=== PATIENT | female | born 1970 | race Caucasian/White ===

== ENCOUNTER → 2016-12-30 | Outpatient (CLI) | payer OTHER ==
[2014-06-21 18:12] VITALS: BP 114/71
[~2016-12-30] MED LIST: ASCO10002 PO; B6/F1TAB PO; BETACAROTENE; CETI10TA16 PO; CHOL20003 PO; CHOL4POW2 PO; CYAN500T PO; DICL1PAT4 TD; ELUX75TA PO; ESTR2TAB PO; FOLI0.4T2 PO; HYOS0.3715 PO; LEVO100T5 PO; LOPE2CAP88 PO; LORA10TA3 PO; LYSI1000 PO; NICO1PAT5 TD; OMEP20TA PO; OSPE60TA2 PO; OXYC-323 PO; POTA99TA PO; TOPI50TA4 PO; VARE1TAB21 PO; VITA400C36 PO; [UNRECOGNIZED DRUG - CODE] PO
--- NOTE | 2016-12-30 12:38 | RAD ---
Radionuclide bone scan, 12/30/2016: History: Hypercalcemia, left hip and back pain Whole-body imaging was performed following IV injection of 26 mCi of technetium 99m MDP. No previous bone scan is available for comparison purposes. There is mildly increased activity at scattered joints including the hips, shoulders, elbows and wrists in a symmetric pattern compatible with arthritis. There is slightly asymmetric increased activity at the right mid foot, right ankle and right patella, also likely on an arthritic basis. Spine activity is normal. Activity of the radionuclide about the skeleton the major joints is otherwise unremarkable. Normal activity is present in both kidneys and the bladder. IMPRESSION: Mild scattered arthritic changes as described above.
== END | disposition home or self-care (01) ==
LOC: NM 09:04
PROVIDERS: ATTEND Family Medicine
DX: E83.52 Hypercalcemia (principal); M54.5 Low back pain; M25.552 Pain in left hip; M19.90 Unspecified osteoarthritis, unspecified site
CPT/HCPCS: 78306; 96374; A9503

== ENCOUNTER → 2017-02-16 | Outpatient (CLI) | payer OTHER ==
[2014-06-21 18:12] VITALS: BP 114/71
[~2017-02-16] MED LIST changes: -DICL1PAT4 TD; +DULO30CA2 PO; +FLECTOR1 EACH TD; -TOPI50TA4 PO; +TOPI50TA75 PO
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
== END | disposition home or self-care (01) ==
LOC: PNCL 07:28
PROVIDERS: ATTEND Anesthesiology
DX: M54.5 Low back pain (principal); M79.605 Pain in left leg
CPT/HCPCS: 99214

== ENCOUNTER → 2017-02-26 | Outpatient (CLI) | payer OTHER ==
[2014-06-21 18:12] VITALS: BP 114/71
[~2017-02-26] MED LIST changes: +GABA-585 PO; +IOHEXOL 180 MG/ML 10 ML VIAL. ONE; +methylPREDNISolone ACETATE 40 MG/ML VIAL. ONE; +methylPREDNISolone ACETATE 80 MG/ML VIAL. ONE
--- NOTE | 2017-02-26 17:01 | PAIN ---
DATE OF SERVICE: 02/26/2017 PROGRESS NOTE FOR PAIN CLINIC DIAGNOSES: Lumbar radiculopathy with lumbar degenerative disk disease. HISTORY OF PRESENT ILLNESS: The patient is a 46-year-old female, who returns for followup status post initial evaluation and preauthorization for lumbar epidural steroid injection. The patient reports still significant pain in the low back, bilateral lower extremities, left greater than right, aching, sharp, shooting, stabbing, burning, tingling unbearable radiating and severe. The patient rates as 10 on scale 10 all times, has been awaken her from sleep 2-4 times at night, which she has to get out of bed, change positions walk around and try to get some more sleep. The patient reports no new motor or sensory deficits, no new bowel or bladder incontinence or other complaints, but has some tingling in the left foot and left hip associated with the back pain, which is on her feet. PHYSICAL EXAMINATION: VITAL SIGNS: The patient's blood pressure 123/77, pulse 91, respirations 20, temperature is 97.8 degrees Fahrenheit, weight is 155 pounds. GENERAL: The patient is awake, alert, oriented, appropriate, very pleasant demeanor. The patient accompanied by her daughter. HEENT: Shows normocephalic, atraumatic. Extraocular movements are intact and symmetrical. Oral cavity, mucous membranes are moist and pink. Dentition is intact. NECK: Shows anterior throat supple without palpable lymphadenopathy noted. Swallow reflex is symmetrical. CHEST: Shows normal on inspection. Breath sounds are clear to auscultation bilaterally. HEART: Shows S1 and S2 clear. ABDOMEN: Soft, nontender, nondistended. No palpable organomegaly is noted. BACK: Shows spine grossly midline. Lumbar paraspinous musculature shows symmetrical with inspection and palpation shows moderate tenderness with palpation throughout the upper, middle, lower distribution of the paraspinous musculature bilaterally. The patient shows no tenderness over the sacrum or sacroiliac regions. Good rotational motion both laterally as well as extension and flexion. EXTREMITIES: Lower extremities showed deep tendon reflexes 2+ in the patellar, 1+ tendo calcaneus tendons. Motor exam is strong with 5/5 dorsiflexion, extension, quadriceps and hamstring flexion equal. Options were discussed with the patient. We will proceed with a lumbar epidural steroid injection today with fluoroscopic guidance. Risks were then discussed including, but not limited to bleeding, infection, possibility of epidural hematoma, subsequent neurologic compromise, dural puncture, headaches, spinal cord and/or nerve damage, side effects of steroid medication and poor results regarding pain control. The patient understands and wishes to proceed. The patient will return to clinic in approximately 2 weeks for followup, was counseled on return appointment, activity level and side effects to be aware of. DIAGNOSES: Lumbar radiculopathy with lumbar degenerative disk disease. PROCEDURE: Lumbar epidural steroid injection in translaminar approach at L4-L5 level using C-arm fluoroscopic guidance under sterile prep and drape using local anesthetic. MEDICATION INJECTED: Depo-Medrol 120 mg plus 10 mL of preservative-free normal saline and 2 mL of Isovue for contrast. CONDITION AT DISCHARGE: Stable. The patient tolerated procedure well, had no complications. PRANAY AGUILAR MD DR: RUSTY/opal JOB#: [id number] / [id number]
== END | disposition home or self-care (01) ==
LOC: PNCL 07:32
PROVIDERS: ATTEND Anesthesiology
DX: M51.16 Intervertebral disc disorders with radiculopathy, lumbar region (principal); E78.00 Pure hypercholesterolemia, unspecified; E03.9 Hypothyroidism, unspecified; F32.9 Major depressive disorder, single episode, unspecified; K21.9 Gastro-esophageal reflux disease without esophagitis; Z98.51 Tubal ligation status; Z90.710 Acquired absence of both cervix and uterus
CPT/HCPCS: 62323; J1030; J1040

== ENCOUNTER → 2017-03-12 | Outpatient (CLI) | payer OTHER ==
[2014-06-21 18:12] VITALS: BP 114/71
[~2017-03-12] MED LIST changes: +CONTRAST GIVEN MC PRN; -IOHEXOL 180 MG/ML 10 ML VIAL. ONE; +IOHEXOL 240 MG/ML 50ML VIAL. PO ONE; +IOHEXOL 300 MG/ML 75 ML VIAL IV ONE; -methylPREDNISolone ACETATE 40 MG/ML VIAL. ONE; -methylPREDNISolone ACETATE 80 MG/ML VIAL. ONE
--- NOTE | 2017-03-12 09:16 | RAD ---
Indication hypercalcemia. Assess for occult tumor. Axial images through the chest, abdomen and pelvis were obtained. Both oral and IV contrast were administered. 75 cc of Omnipaque 300 was administered intravenously. No prior CT imaging of the chest, abdomen or pelvis is available. CT chest: Findings The thyroid is mildly and diffusely enlarged. The thoracic aorta is unremarkable. There is no significant hilar or mediastinal adenopathy. The lungs are clear. There is no dominant soft tissue mass seen in either lung. CT abdomen and pelvis: Findings. The liver and spleen appear unremarkable. Clips are noted in the gallbladder fossa. No significant adrenal or renal pathology is seen. There is a minute right renal calculus. The pancreas appears normal. There is no significant central or retroperitoneal adenopathy. Acute finding in the abdomen is not seen. No mass is apparent. The pelvis is unremarkable. IMPRESSION: Essentially unremarkable CT chest, abdomen and pelvis. Minute right renal calculus. PQRS Compliance Statement: One or more of the following individualized dose reduction techniques were utilized for this examination: 1. Automated exposure control 2. Adjustment of the mA and/or kV according to patient size 3. Use of iterative reconstruction technique
== END | disposition home or self-care (01) ==
LOC: CT 07:49
PROVIDERS: ATTEND Family Medicine
DX: E83.52 Hypercalcemia (principal); C80.1 Malignant (primary) neoplasm, unspecified
CPT/HCPCS: 71260; 74177; Q9966; Q9967

== ENCOUNTER → 2017-03-19 | Outpatient (CLI) | payer OTHER ==
[2014-06-21 18:12] VITALS: BP 114/71
[~2017-03-19] MED LIST changes: -CHOL20003 PO; +CHOL20009 PO; -CONTRAST GIVEN MC PRN; +IOHEXOL 180 MG/ML 10 ML VIAL. ONE; -IOHEXOL 240 MG/ML 50ML VIAL. PO ONE; -IOHEXOL 300 MG/ML 75 ML VIAL IV ONE; -LYSI1000 PO; -OMEP20TA PO; +OMEP20TA8 PO; +OXYC5TAB PO; +SIME125C75 PO; -TOPI50TA75 PO; +TOPI50TA8 PO; +[UNRECOGNIZED DRUG - CODE] PO; -[UNRECOGNIZED DRUG - CODE] PO; +methylPREDNISolone ACETATE 40 MG/ML VIAL. ONE; +methylPREDNISolone ACETATE 80 MG/ML VIAL. ONE
--- NOTE | 2017-03-20 01:08 | PAIN ---
DATE OF SERVICE: 03/19/2017 DIAGNOSES: Lumbar radiculopathy with lumbar degenerative disk disease. HISTORY OF PRESENT ILLNESS: The patient is a 46-year-old female who returns for followup status post lumbar epidural steroid injection x 1. The patient reports approximately 50% improvement initially in the low back and left leg, but the pain has begun to return now over the past week or so. The patient reports it is increased with walking and standing, better with sitting or lying down, although it does wake her from sleep once in a while, she sleeps about four hours at time, ____ awaken her, she has to reposition and she can get back to sleep without difficulty. The patient reports it as aching, sharp, tight, shooting, cramping, stabbing, burning, tingling, unbearable, severe and radiating and it is 10 on a scale of 10, its least is currently an 8 on a scale of 10 today. The patient reports no new motor or sensory deficits, no new bowel or bladder incontinence or other complaints. PHYSICAL EXAMINATION: VITAL SIGNS: The patient's blood pressure is 107/83, pulse is 82, respirations 18, temperature is 97.8 degrees Fahrenheit, height is 5 feet 6 inches, weight is 152 pounds. GENERAL: The patient is awake, alert, oriented, appropriate, very pleasant demeanor. HEENT: Shows normocephalic, atraumatic. Extraocular movements are intact and symmetrical. Oral cavity, mucous membranes are moist and pink. Dentition is intact. NECK: Shows anterior throat supple without palpable lymphadenopathy noted. Swallow reflex is symmetrical. CHEST: Shows normal on inspection. Breath sounds clear to auscultation bilaterally. HEART: Shows S1 and S2 clear. ABDOMEN: Soft, nontender, nondistended. No palpable organomegaly is noted. No rebound or guarding demonstrated. BACK: The patient's back shows spine grossly in the midline. The lumbar paraspinous musculature is symmetrical on inspection without asymmetry with palpation shows normal muscle girth, is firm and moderately tender in the middle and lower distribution of paraspinous muscles, but only diffusely without radiation. EXTREMITIES: Lower extremities showed deep tendon reflexes at 2+ in the patellar, 1+ tendo calcaneus tendons. Motor exam is strong with 5/5 dorsiflexion, extension, quadriceps and hamstring flexion. Options were discussed with the patient and the patient's old chart was reviewed as her current medication regimen updated. Current review of systems updated today as well and we will proceed with a second lumbar epidural steroid injection today with fluoroscopic guidance. Risks were again discussed including, but not limited to bleeding, infection, possibility of epidural hematoma, subsequent neurologic compromise, dural puncture, headaches, spinal cord and/or nerve damage, side effects of steroid medication and poor results regarding pain control. The patient understands and wishes to proceed. The patient will return to clinic in approximately 2 weeks for followup. She was counseled as to return appointment, activity level and side effects to be aware of. DIAGNOSES: Lumbar radiculopathy with lumbar degenerative disk disease. PROCEDURE: Lumbar epidural steroid injection in translaminar approach at L4-L5 level using C-arm fluoroscopic guidance under sterile prep and drape using local anesthetic. MEDICATION INJECTED: 120 mg Depo-Medrol plus 10 mL preservative-free normal saline and 2 mL of Isovue for contrast. CONDITION AT DISCHARGE: Stable. The patient tolerated the procedure well and had no complications. PRANAY AGUILAR MD DR: RUSTY/opal JOB#: [id number] / [id number]
== END | disposition home or self-care (01) ==
LOC: PNCL 07:27
PROVIDERS: ATTEND Anesthesiology
DX: M51.16 Intervertebral disc disorders with radiculopathy, lumbar region (principal); E78.00 Pure hypercholesterolemia, unspecified; K21.9 Gastro-esophageal reflux disease without esophagitis; E03.9 Hypothyroidism, unspecified; F41.9 Anxiety disorder, unspecified; Z86.69 Personal history of other diseases of the nervous system and sense organs; Z90.710 Acquired absence of both cervix and uterus; Z98.51 Tubal ligation status; Z86.39 Personal history of other endocrine, nutritional and metabolic disease; Z88.6 Allergy status to analgesic agent; Z91.040 Latex allergy status; Z88.5 Allergy status to narcotic agent; Z91.048 Other nonmedicinal substance allergy status
CPT/HCPCS: 62323; J1030; J1040

== ENCOUNTER → 2017-04-06 | Outpatient (CLI) | payer OTHER ==
[2014-06-21 18:12] VITALS: BP 114/71
[~2017-04-06] MED LIST changes: +GADOBUTROL 7.5 MMOL/7.5 ML VIAL IV ONE; -IOHEXOL 180 MG/ML 10 ML VIAL. ONE; -methylPREDNISolone ACETATE 40 MG/ML VIAL. ONE; -methylPREDNISolone ACETATE 80 MG/ML VIAL. ONE
--- NOTE | 2017-04-06 15:58 | KCIC ---
MRI of the lumbar spine without and with contrast 04/06/2017 CLINICAL HISTORY: Low back pain with left hip pain and bilateral leg numbness for 6 months. TECHNIQUE: Unenhanced T1-weighted and T2-weighted sagittal and axial and inversion recovery sagittal images of the lumbar spine were obtained. After the intravenous administration of 7 cc of Gadavist, enhanced T1 weighted sagittal and axial images of the lumbar spine were obtained. FINDINGS: Mild lateral curvature of the lumbar spine is seen convex to the left. Degenerative signal changes are seen involving predominantly the L2-3 disc. Degenerative signal changes are seen within the marrow surrounding this disc. The conus medullaris is within normal limits in morphology, position, and signal characteristics. No area of abnormal contrast enhancement is seen. At the L1-2 disc space there is a minimal generalized disc bulge. Degenerative changes are seen involving the facet joints bilaterally. These findings do not result in significant central spinal canal or neural foraminal stenosis. At the L2-3 disc space there is a mild generalized disc bulge. This is eccentric to the right. There is a superimposed right paracentral/lateral focal disc protrusion. This measures 2.5 mm in AP diameter. Degenerative changes are seen involving the facet joints bilaterally. There is mild to moderate ligamentum flavum hypertrophy. These findings when combined do not result in significant central spinal canal or neural foraminal stenosis. At the L3-4 disc space there is a mild generalized disc bulge. Degenerative changes are seen involving the facet joints bilaterally. There is mild ligamentum flava hypertrophy bilaterally. These findings when combined do not result in significant central spinal canal or neural foraminal stenosis. At the L4-5 disc space there is a mild generalized disc bulge. Degenerative changes are seen involving the facet joints bilaterally. There is moderate ligamentum flavum hypertrophy bilaterally. These findings when combined result in mild central spinal canal stenosis. No neural foraminal stenosis is seen. At the L5-S1 disc space there is a mild generalized disc bulge. Degenerative changes are seen involving the facet joints bilaterally. These findings when combined do not result in significant central spinal canal or neural foraminal stenosis. IMPRESSION: The changes of degenerative disc disease are seen throughout the lumbar spine. These findings result in mild central spinal canal stenosis at L4-5. No neural foraminal stenosis is seen. Electronically signed by: Mitesh Merrill MD (04/06/2017 3:56 PM)
== END | disposition home or self-care (01) ==
LOC: KCIC MRI 09:59
PROVIDERS: ATTEND Family Medicine
DX: M51.36 Other intervertebral disc degeneration, lumbar region (principal); M48.06 Spinal stenosis, lumbar region
CPT/HCPCS: 72158; A9585

== ENCOUNTER → 2017-04-08 | Outpatient (CLI) | payer OTHER ==
[2014-06-21 18:12] VITALS: BP 114/71
[~2017-04-08] MED LIST changes: -GADOBUTROL 7.5 MMOL/7.5 ML VIAL IV ONE
--- NOTE | 2017-04-08 12:24 | KCIC ---
THYROID ULTRASOUND History: Thyroid nodule. Comparison: None. Technique: Multiple grayscale and color Doppler images of the thyroid gland were obtained. Findings: The thyroid gland is enlarged and heterogeneous and hypervascular. The right thyroid lobe measures 5.3 x 2.3 x 2.3 cm. The isthmus measures 5 mm. The left thyroid lobe measures 5.5 x 2.5 x 3 cm. There are multiple well-circumscribed hyperechoic nodules in the left thyroid lobe, the largest is in the midportion measuring 11 x 7 x 10 mm. No suspicious thyroid nodule is identified. IMPRESSION: Enlarged, heterogeneous, multinodular, and hypervascular thyroid gland. Nonspecific thyroiditis is in the differential. Electronically signed by: Freeman Del Real MD (04/08/2017 12:21 PM)
== END | disposition home or self-care (01) ==
LOC: KCIC US 07:37
PROVIDERS: ATTEND Family Medicine
DX: E04.1 Nontoxic single thyroid nodule (principal)
CPT/HCPCS: 76536

== ENCOUNTER → 2017-04-09 | Outpatient (CLI) | payer OTHER ==
[2014-06-21 18:12] VITALS: BP 114/71
[~2017-04-09] MED LIST changes: +IOHEXOL 180 MG/ML 10 ML VIAL. ONE; +methylPREDNISolone ACETATE 40 MG/ML VIAL. ONE; +methylPREDNISolone ACETATE 80 MG/ML VIAL. ONE
== END | disposition home or self-care (01) ==
LOC: PNCL 07:24
PROVIDERS: ATTEND Anesthesiology
DX: M51.36 Other intervertebral disc degeneration, lumbar region (principal); Z86.69 Personal history of other diseases of the nervous system and sense organs; E78.00 Pure hypercholesterolemia, unspecified; K21.9 Gastro-esophageal reflux disease without esophagitis; Z98.51 Tubal ligation status; Z90.710 Acquired absence of both cervix and uterus; Z87.39 Personal history of other diseases of the musculoskeletal system and connective tissue; Z86.39 Personal history of other endocrine, nutritional and metabolic disease; E03.9 Hypothyroidism, unspecified; F32.9 Major depressive disorder, single episode, unspecified; F17.200 Nicotine dependence, unspecified, uncomplicated; Z88.6 Allergy status to analgesic agent; Z91.040 Latex allergy status; Z91.048 Other nonmedicinal substance allergy status; Z79.82 Long term (current) use of aspirin
CPT/HCPCS: 62323; J1030; J1040

== ENCOUNTER 2017-04-23 08:21 | Outpatient (CLI) | payer OTHER ==
[2017-04-23] VITALS (13 sets, daily range): BP systolic 89–119; BP diastolic 47–73
[~2017-04-23] VITALS: Ht 167.6 cm; Wt 67.6 kg
[~2017-04-23 08:21] MED LIST changes: -IOHEXOL 180 MG/ML 10 ML VIAL. ONE; -methylPREDNISolone ACETATE 40 MG/ML VIAL. ONE; -methylPREDNISolone ACETATE 80 MG/ML VIAL. ONE
[2017-04-23 08:46] LABS: BASO # 0.1 x10^3/uL (0.0-0.2); BASO % 1 % (0-3); EOS % 2 % (0-3); HEMATOCRIT 39.7 % (36.0-47.0); HEMOGLOBIN 13.8 g/dL (12.0-15.5); LYMPH # 2.3 x10^3/uL (1.0-4.8); LYMPH % 26 % (24-48); MEAN CORPUSCULAR HEMOGLOBIN 35 pg (25-35); MEAN CORPUSCULAR HGB CONC 35 g/dL (31-37); MEAN CORPUSCULAR VOLUME 101 fL (79-100); MONO % 7 % (0-9); NEUT % 63 % (31-73); PLATELET COUNT 217 x10^3/uL (140-400); RED BLOOD COUNT 3.93 x10^6/uL (3.50-5.40); WHITE BLOOD COUNT 8.8 x10^3/uL (4.0-11.0)
[2017-04-23] MEDS ORDERED: SUMA100T4 PO (08:52)
[2017-04-23] MEDS ORDERED: CYCL10TA2 PO (08:52)
[2017-04-23] MEDS ORDERED: ESTR1TAB15 PO (08:52)
[2017-04-23 08:55] LABS: INR 0.9 (0.8-1.1); PROTHROMBIN TIME PATIENT 11.4 SEC (11.7-14.0)
[2017-04-23] MEDS ORDERED: fentaNYL PF VIAL 100 MCG/2 ML VIAL ONE (10:06)
[2017-04-23] MEDS ORDERED: MIDAZOLAM HCL/PF 2 MG/2 ML VIAL. ONE (10:06)
[2017-04-23] MEDS ORDERED: LIDOCAINE 1% / SOD BICARB 8.4% 20 ML VIAL. IJ ONE ×2 (10:12→10:30)
[2017-04-23] MEDS ORDERED: GELATIN SPONGE SIZE 12-7MM SPONGE. ONE (10:16)
[2017-04-23] MEDS ORDERED: MIDAZOLAM HCL/PF 2 MG/2 ML VIAL. IV ONE (10:30)
[2017-04-23] MEDS ORDERED: fentaNYL PF VIAL 100 MCG/2 ML VIAL IV ONE (10:30)
[2017-04-23] MEDS ORDERED: oxyCODONE IR 5 MG TABLET PO ONE (10:45)
--- NOTE | 2017-04-23 12:11 | RAD ---
Ultrasound-guided biopsy of the liver 04/23/2017 Indication: Possible autoimmune hepatitis Discussion: The risks and benefits of the procedure including but not limited to bleeding including life-threatening bleeding, pain, pneumothorax, bowel injury, and liver injury were discussed the patient. Informed consent was obtained. The patient was brought to the interventional suite. A timeout procedure was performed. The right upper abdomen was prepped and draped using sterile barrier technique. Ultrasound evaluation demonstrated grossly unremarkable sonographic appearance of the right hepatic lobe. Once a site for skin entry been selected 1% lidocaine without epinephrine was administered to the skin subcutaneous tissues for local anesthesia. A 17-gauge guiding needle was advanced to the right hepatic lobe. 2 x 18-gauge core biopsy samples were obtained and placed in formalin. Gelfoam embolization of the biopsy tract was performed as a guiding needle was removed. Manual pressure was held for several minutes. Repeat ultrasound demonstrates expected postbiopsy changes. No perihepatic hematoma is identified. No other immediate complications are identified. Sedation: Conscious sedation was performed including continuous cardiopulmonary monitoring via a dedicated sedation nurse. Sedation time: 20 minutes Impression: Successful ultrasound-guided biopsy of the right hepatic lobe.
== END 2017-04-23 13:25 | disposition home or self-care (01) ==
LOC: INTRAD 08:21
PROVIDERS: ATTEND Internal Medicine Gastroenterology
DX: R94.5 Abnormal results of liver function studies (principal); Z86.69 Personal history of other diseases of the nervous system and sense organs; E78.00 Pure hypercholesterolemia, unspecified; K21.9 Gastro-esophageal reflux disease without esophagitis; Z98.51 Tubal ligation status; Z90.710 Acquired absence of both cervix and uterus; Z87.39 Personal history of other diseases of the musculoskeletal system and connective tissue; E03.9 Hypothyroidism, unspecified; F32.9 Major depressive disorder, single episode, unspecified; F17.200 Nicotine dependence, unspecified, uncomplicated; Z88.6 Allergy status to analgesic agent; Z91.040 Latex allergy status; Z88.8 Allergy status to other drugs, medicaments and biological substances; Z91.048 Other nonmedicinal substance allergy status; Z79.82 Long term (current) use of aspirin
CPT/HCPCS: 36415; 47000; 76942; 85027; 85610; 99152; C1887; J2250; J3010

== ENCOUNTER → 2017-11-23 | Outpatient (CLI) | payer OTHER | END | disposition home or self-care (01) | LOC: KCIC 11:38 | DX: R06.02 Shortness of breath (principal); Z87.891 Personal history of nicotine dependence | CPT/HCPCS: 71046 ==

== ENCOUNTER → 2017-12-23 | Outpatient (CLI) | payer OTHER ==
[~2017-12-23] MED LIST changes: -ASCO10002 PO; -B6/F1TAB PO; -BETACAROTENE; -CETI10TA16 PO; -CHOL20009 PO; -CHOL4POW2 PO; +CONTRAST GIVEN MC; -CYAN500T PO; -DULO30CA2 PO; -ELUX75TA PO; -ESTR2TAB PO; -FLECTOR1 EACH TD; -FOLI0.4T2 PO; -GABA-585 PO; -HYOS0.3715 PO; -LEVO100T5 PO; -LOPE2CAP88 PO; -LORA10TA3 PO; -NICO1PAT5 TD; -OMEP20TA8 PO; -OSPE60TA2 PO; -OXYC-323 PO; -OXYC5TAB PO; -POTA99TA PO; -SIME125C75 PO; -TOPI50TA8 PO; -VARE1TAB21 PO; -VITA400C36 PO; -[UNRECOGNIZED DRUG - CODE] PO
[2017-12-23] MEDS: IOHEXOL 300 MG/ML 100ML VIAL. IV (07:53)
== END | disposition home or self-care (01) ==
LOC: CT 07:27
DX: E04.2 Nontoxic multinodular goiter (principal)
CPT/HCPCS: 70491; 71260; Q9967

== ENCOUNTER → 2021-01-03 | Outpatient (CLI) | payer OTHER ==
[2017-04-23 13:02] VITALS: BP 101/57
[~2021-01-03] MED LIST changes: +ASCO100019 PO; +B6/F1TAB PO; +BETACAROTENE; +CETI10TA16 PO; +CHOL20009 PO; +CHOL4POW2 PO; -CONTRAST GIVEN MC; +CYAN500T7 PO; +CYCL10TA2 PO; +DULO30CA2 PO; +ELUX75TA PO; +ESTR-113 PO; +ESTR2TAB PO; +FLECTOR1 EACH TD; +FOLI0.4T5 PO; +GABA-585 PO; +HYOS0.3715 PO; +LEVO100T5 PO; +LOPE-101 PO; +LORA10TA3 PO; +NICO1PAT5 TD; +OMEP20TA8 PO; +OSPE60TA2 PO; +OXYC1TAB15 PO; +OXYC5TAB4 PO; +POTA99TA PO; +SIME125C85 PO; +SUMA100T4 PO; +TOPI50TA8 PO; +VARE1TAB21 PO; +VITA-8 PO; +[UNRECOGNIZED DRUG - CODE] PO
--- NOTE | 2021-01-03 16:24 | KCIC ---
INDICATION: Reason: CHRONIC SOA, HX OF COVID 07/30, QUIT SMOKING 4 YRS AGO / Spl. Instructions: / Hi story: COMPARISON: December 2017 FINDINGS: 2 view of chest obtained. No focal airspace consolidation. Cardiomediastinal contour unremarkable. No acute osseous abnormality. IMPRESSION: * No focal airspace consolidation or edema. Electronically signed by: Sam Tuttle MD (01/03/2021 4:21 PM) [id number]
== END ==
LOC: KCIC 15:52
PROVIDERS: ATTEND Family Medicine
DX: R06.02 Shortness of breath (principal); Z87.891 Personal history of nicotine dependence; Z86.16 Personal history of COVID-19
CPT/HCPCS: 71046

== ENCOUNTER → 2021-01-15 | Outpatient (CLI) | payer OTHER ==
[2017-04-23 13:02] VITALS: BP 101/57
--- NOTE | 2021-01-16 03:46 | KCIC ---
US THYROID History: Reason: MULTINODULAR THYROID / Spl. Instructions: / History: Comparison: April 08, 2017 Technique: Multiple grayscale and color Doppler images of the thyroid gland were obtained. Findings: Right thyroid lobe: 5.8 x 2.5 x 2.2 cm. Heterogeneous echotexture. Left thyroid lobe: 5.9 x 2.6 x 2.2 cm. Heterogeneous echotexture. Isthmus: 0.8 cm. Exophytic hypoechoic nodule superior to the isthmus measures 1.3 x 0.8 x 0.5 cm. TI-RADS 4. Not defin itely seen previously. Previously identified hyper paracolic left thyroid nodules are not discretely identified on the curre nt examination. ACR Thyroid Imaging, Reporting And Data System (TI-RADS): White Paper Of The ACR TI-RADS Committee. J ournal of the [employer], volume 14, issue 5, pages 587-595 (February 2017). IMPRESSION: 1. Enlarged diffusely heterogeneous thyroid, may indicate thyroiditis. 2. TI-RADS 4 superior Isthmus nodule. Recommend ultrasound follow-up. Electronically signed by: Grey Cassidy DO (01/16/2021 3:43 AM) [facility]
== END ==
LOC: KCIC US 12:32
PROVIDERS: ATTEND Family Medicine
DX: E04.2 Nontoxic multinodular goiter (principal)
CPT/HCPCS: 76536

== ENCOUNTER → 2021-01-15 | Outpatient (CLI) | payer OTHER ==
[2017-04-23 13:02] VITALS: BP 101/57
--- NOTE | 2021-01-16 13:34 | KCIC ---
Coronary calcium score CT chest without contrast History: Cardiac vascular screening, past smoker, hyperlipidemia Comparison: CT chest abdomen and pelvis 03/12/2017 Technique: With retrospective electrocardiogram gating axial reconstructed noncontrast images of the chest at the level of the coronary arteries was performed. The upper thorax was not fully included fo r purposes of this exam. Images were post processed on workstation and calcium score calculated using the modified Agatston Janowitz protocol. Findings: Calcium score Left main coronary artery 0 Left anterior descending artery 0 Left circumflex artery 0 Right coronary artery 0 Total coronary calcium score is 0. Coronary vascular calcium is not detected with this exam. This does not absolutely rule out the prese nce of atherosclerotic plaque, including unstable plaque, but does imply a very low likelihood of sig nificant luminal narrowing or obstruction. A negative test may be consistent with a low risk of cardiovascular event in the next 2 to 5 years. Incidental findings: There are new peripheral nodules in the right middle lobe and left lower lobe, p redominantly tree-in-bud in appearance. Two of them in the subpleural right middle lobe are more disc rete and measures 1 cm and 0.7 cm (image 17 and 26 series 5). There is an 0.5 cm perifissural nodule in the right middle lobe (image 25 series 5). A nodule in the left lower lobe measures 0.5 cm (image 14, series 5). IMPRESSION: 1. Total calcium score is 0, very low risk of cardiovascular event. 2. New peripheral nodules in the right middle lobe and left lower lobe, predominantly tree-in-bud in appearance. Findings are most suggestive of an infectious or inflammatory process. Recommend follow-u p CT in 3 months to ensure resolution. Electronically signed by: Luisana Hendricks MD (01/16/2021 1:32 PM) [id number]
== END ==
LOC: KCIC CT 12:24
PROVIDERS: ATTEND Family Medicine
DX: Z13.6 Encounter for screening for cardiovascular disorders (principal); E78.5 Hyperlipidemia, unspecified; Z87.891 Personal history of nicotine dependence
CPT/HCPCS: 75571

== ENCOUNTER → 2021-06-20 | Outpatient (CLI) | payer OTHER ==
[2017-04-23 13:02] VITALS: BP 101/57
--- NOTE | 2021-06-20 18:00 | KCIC ---
EXAM: XR CERVICAL SPINE 2-3V 06/20/2021 12:44 PM CLINICAL INDICATION: Cervicalgia for 3 years in the left shoulder COMPARISON: CT neck 12/23/2017 FINDINGS: 4 views of the cervical spine. There is 2 mm anterolisthesis of C3 on C4 and C4 on C5. The re is straightening of lordosis. Disc spaces are maintained. Mild facet arthrosis in the upper cervic al. Prevertebral soft tissue is normal. IMPRESSION: 1. Straightening of lordosis and 2 mm anterolisthesis of C3 on C4 and C4 and C5. 2. Mild facet arthrosis in the upper cervical spine. Electronically signed by: Luisana Hendricks MD (06/20/2021 5:58 PM) [id number]
== END ==
LOC: KCIC 12:37
PROVIDERS: ATTEND Family Medicine
DX: M47.812 Spondylosis without myelopathy or radiculopathy, cervical region (principal); M43.12 Spondylolisthesis, cervical region
CPT/HCPCS: 72040

== ENCOUNTER → 2021-07-22 | Outpatient (CLI) | payer OTHER ==
[2017-04-23 13:02] VITALS: BP 101/57
[~2021-07-22] MED LIST changes: -ESTR2TAB PO; +ESTR2TAB3 PO
--- NOTE | 2021-07-22 14:01 | KCIC ---
EXAM: THYROID ULTRASOUND. HISTORY: Thyroid nodule. COMPARISON: 01/15/2021, 04/08/2017. FINDINGS: Sonographic evaluation of the thyroid gland was performed and evaluated using ACR TI-RADS c riteria. Right lobe: The right lobe measures 5.2 x 2.3 x 2.2 cm. The parenchyma is diffusely heterogeneous and hypoechoic. Left lobe: The left lobe measures 5.1 x 2.4 x 2.4 cm. The parenchyma is diffusely heterogeneous and h ypoechoic. Isthmus: The isthmus is thickened at 8 mm. A hypoechoic nodule superior to the isthmus measures 12 x 9 x 5 mm and is unchanged. IMPRESSION/RECOMMENDATION: 1. A 12 mm hypoechoic nodule superior to the thyroid isthmus is stable. This may represent a lymph no de versus a thyroid nodule, and is stable. Another follow-up could be considered in one year if there is persistent concern. 2. Diffusely heterogeneous, hypoechoic thyroid parenchyma consistent with prior thyroiditis. Electronically signed by: Becky Franklin MD (07/22/2021 1:58 PM) [id number]
== END ==
LOC: KCIC US 12:49
PROVIDERS: ATTEND Surgery
DX: Z09 Encounter for follow-up examination after completed treatment for conditions other than malignant neoplasm (principal); E04.1 Nontoxic single thyroid nodule
CPT/HCPCS: 76536

== ENCOUNTER → 2021-10-16 | Outpatient (CLI) | payer OTHER ==
[2017-04-23 13:02] VITALS: BP 101/57
[~2021-10-16] MED LIST changes: +CYCL10TA19 PO; -CYCL10TA2 PO
--- NOTE | 2021-10-20 08:12 | SLEEP ---
DATE OF STUDY: 10/16/2021 ATTENDING PHYSICIAN: Dr. German. The patient is a 51-year-old who weighs 180 pounds with a BMI of 29. The patient's [place] score was 18. The patient underwent home sleep study performed by [facility]. Total recording time was 561 minutes. During the night study, the patient had 100 central apneas, 31 obstructive apneas, 109 mixed apneas and 43 hypopneas. The patient's AHI was 30 per hour. Nocturnal oximetry study revealed an average oxygen saturation 93% with a lowest of 64%. 25 minutes were spent with oxygen saturation less than 90%. Mean heart rate 86 beats per minute with a maximum of 112 beats per minute. IMPRESSION: 1. Severe sleep apnea at an AHI of 30 per hour. The patient's sleep apnea was combination of obstructive and central apneas. 2. Nocturnal hypoxia secondary to obstructive sleep apnea. RECOMMENDATIONS: 1. The patient will benefit from in-lab CPAP titration study due to presence of mixed apneas. 2. Once the patient is optimally treated with CPAP, then follow up in 4-6 weeks to assess compliance and to document clinical improvement. 3. Weight loss is advised. 4. Avoid HYDROGEOLOGIST depressants. 5. Cautioned regarding driving until symptoms of sleep apnea resolve with above recommendations. NATHANIEL DR: Nan TID: [id number]
== END ==
LOC: RT 09:12
PROVIDERS: ATTEND Family Medicine
DX: G47.33 Obstructive sleep apnea (adult) (pediatric) (principal); G47.34 Idiopathic sleep related nonobstructive alveolar hypoventilation
CPT/HCPCS: G0399

== ENCOUNTER → 2022-01-27 | Outpatient (CLI) | payer OTHER ==
[2017-04-23 13:02] VITALS: BP 101/57
[~2022-01-27] MED LIST changes: -CHOL4POW2 PO; +CHOL4POW6 PO; -OMEP20TA8 PO; +OMEP20TA91 PO
--- NOTE | 2022-01-27 10:12 | EKG ---
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
[2022-01-27 10:17] LABS: BASO # 0.1 x10^3/uL (0.0-0.2); BASO % 1 % (0-3); EOS # 0.3 x10^3/uL (0.0-0.7); EOS % 4 % (0-3); HEMATOCRIT 40.8 % (36.0-47.0); HEMOGLOBIN 14.2 g/dL (12.0-15.5); LYMPH # 2.1 x10^3/uL (1.0-4.8); LYMPH % 28 % (24-48); MEAN CORPUSCULAR HEMOGLOBIN 33 pg (25-35); MEAN CORPUSCULAR HGB CONC 35 g/dL (31-37); MEAN CORPUSCULAR VOLUME 94 fL (79-100); MONO # 0.5 x10^3/uL (0.0-1.1); MONO % 7 % (0-9); NEUT # 4.5 x10^3/uL (1.8-7.7); NEUT % 61 % (31-73); PLATELET COUNT 246 x10^3/uL (140-400); RED BLOOD COUNT 4.35 x10^6/uL (3.50-5.40); RED CELL DISTRIBUTION WIDTH 12.7 % (11.5-14.5); WHITE BLOOD COUNT 7.5 x10^3/uL (4.0-11.0)
[2022-01-27 10:35] LABS: ALBUMIN 3.7 g/dL (3.4-5.0); ALBUMIN/GLOBULIN RATIO 0.9 (1.0-1.7); CALCIUM 10.2 mg/dL (8.5-10.1); CREATININE 0.8 mg/dL (0.6-1.0); POTASSIUM 4.8 mmol/L (3.5-5.1); TOTAL BILIRUBIN 0.5 mg/dL (0.2-1.0); TOTAL PROTEIN 7.8 g/dL (6.4-8.2)
== END ==
LOC: EKG 09:35
PROVIDERS: ATTEND Otolaryngology Plastic Surgery within the Head & Neck
DX: Z01.818 Encounter for other preprocedural examination (principal); R94.31 Abnormal electrocardiogram [ECG] [EKG]; G47.19 Other hypersomnia; K13.79 Other lesions of oral mucosa; J34.2 Deviated nasal septum; J34.3 Hypertrophy of nasal turbinates; E66.3 Overweight; R53.83 Other fatigue; Z90.89 Acquired absence of other organs; Z78.9 Other specified health status
CPT/HCPCS: 36415; 80053; 84436; 84443; 85025; 93005